=== PATIENT | female | born 1990 | race Caucasian/White ===

== ENCOUNTER 2021-03-15 10:46 | Emergency (ER) | payer OTHER ==
[2021-03-15 11:09] VITALS: BP 110/67; PULSE 76; RESP 18; TEMP 97.7
[2021-03-15 15:08] LABS: Appearance,Urine Clear (Clear); Bilirubin,Urine Negative (Negative); Blood,Urine Negative (Negative); Color,Urine Yellow; Glucose,Urine (UA) Negative (Negative); Ketones,Urine 1+ (Negative); Leukocyte Esterase,Urine Negative (Negative); Nitrite,Urine Negative (Negative); Protein,Urine Negative (Negative); Specific Gravity,Urine 1.018 (1.001-1.035); Urobilinogen,Urine <2.0 mg/dL (<2.0)
--- NOTE | 2021-03-15 15:19 | US ---
EXAMINATION TYPE: Transabdominal DATE OF EXAM: 03/15/2021 2:56 PM COMPARISON: NONE CLINICAL HISTORY: 10wks preg, cramping/spotting. cramping for 1 day with 1 episode of pink spotting t his am, . Positive beta-hCG test. EXAM PERFORMED: OBTA EXAM MEASUREMENTS: GESTATIONAL AGE / DATING Physician Established: (10 weeks/4 days) EDC: 10/07/2021 Dates by LMP: LMP unknown Dates by First Scan: No previous this is first scan Dates by Current Scan for: (9 weeks/0 days) EDC: not viable MATERNAL ANATOMY Uterus: 9.5 x 8.3 x 7.9cm Right Ovary: not seen due to bowel gas and enlarging UT Left Ovary: not seen due to bowel gas and enlarging UT Post CDS / Adnexa: wnl Presence of free fluid: no Presence of corpus luteal cyst: not seen Presence of subchorionic bleed: no GESTATION / SURVEY CRL: 2.3cm (9 weeks/0 days) MSD: wnl Yolk Sac (normal less than 6mm): not seen Heart Rate: 0 bpm IUP: Demise Date of LMP: unknown Heterogeneous anteverted uterus. Confirmation of single intrauterine gestation as gestational sac an d pole seen. Yolk sac not identified. heart tones cannot be identified despite multiple a ttempts. No free fluid in pelvic cul-de-sac. Neither ovary seen. No adnexal masses noted on images saved. IMPRESSION: Findings consistent with intrauterine demise as detailed above.
--- NOTE | 2021-03-15 15:36 | ED ---
Abdominal Pain HPI - General Chief Complaint: Abdominal Pain Stated Complaint: 10 wks preg, bleeding Time Seen by Provider: 03/15/21 14:12 Source: patient, family, RN notes reviewed Mode of arrival: ambulatory Limitations: no limitations - History of Present Illness Initial Comments: Patient is a 31-year-old female presenting to the emergency Department with complaints of lower abdominal cramping that started last night. Patient is currently 10 weeks , . SHOP COOPER is Dr. Saleh. She has an appointment to see her next week. Patient states she started having some lower abdominal cramping with radiation into the back yesterday and throughout today. She does remember some abdominal cramping with her previous but it's not usuall y this intense. This morning she did have a little bit of spotting. This has not been continuous. She did have an ultrasound at about 6 weeks along which did show an IUP, too early for heartbeat at that time. Patient denies any fevers or chills, no nausea or vomiting, no diarrhea. She states she feels fairly well otherwise. She denies any dysuria. She's been having regular bowel movements. She has no further complaints. Her vital signs are stable. - Related Data Allergies Allergy/AdvReac Type Severity Reaction Status Date / Time No Known Allergies Allergy Verified 03/15/21 11:08 Review of Systems ROS Statement: Those systems with pertinent positive or pertinent negative responses have been documented in the HPI. ROS Other: All systems not noted in ROS Statement are negative. Past Medical History Past Medical History: No Reported History History of Any Multi-Drug Resistant Organisms: MRSA Past Surgical History: No Surgical Hx Reported Past Psychological History: No Psychological Hx Reported Smoking Status: Never smoker Past Alcohol Use History: None Reported Past Drug Use History: None Reported General Exam - General Exam Comments Initial Comments: GENERAL: Patient is well-developed and well-nourished. Patient is nontoxic and in no acute distress. HEAD: Atraumatic, normocephalic. EYES: Pupils equal round and reactive to light, extraocular movements intact, sclera anicteric, conjunctiva are normal. Eyelids were unremarkable. ENT: Moist mucous membranes. NECK: Normal range of motion, supple without lymphadenopathy or JVD. LUNGS: Unlabored respirations. Breath sounds clear to auscultation bilaterally and equal. No wheezes rales or rhonchi. HEART: Regular rate and rhythm without murmurs, rubs or gallops. ABDOMEN: Soft, nontender, normoactive bowel sounds. No guarding, no rebound. No masses appreciated. MUSCULOSKELETAL: Normal extremities with adequate strength and normal range of motion, no pitting or edema. No clubbing or cyanosis. NEUROLOGICAL: Patient is alert and oriented x 3. SKIN: Warm, Dry, normal turgor, no rashes or lesions noted. Limitations: no limitations Course Vital Signs 03/15/21 11:03 Temperature 97.7 F Pulse Rate 76 Respiratory 18 Rate Blood Pressure 110/67 O2 Sat by Pulse 100 Oximetry Medical Decision Making - Medical Decision Making Patient is a 31-year-old female, currently 10 weeks , presenting for lower abdominal cramping since yesterday as well as some spotting that started this morning. She is , SHOP COOPER is Dr. Saleh. Her vital signs are stable. I did recommend some blood work as well as hCG Quant however patient declined this. She simply wants an ultrasound. She states her blood type is A+. Ultrasound reveals confirmation of a single intrauterine gestation, with gestational sac and pole seen, he'll contact not identified, heart tones cannot be identified despite multiple times. Radiologist is stating findings are consistent with intrauterine demise. I discussed these findings with the patient. She needs to follow up with her SHOP COOPER. She is agreeable to this plan of care. Strict return parameters were discussed with her and she verbalized understanding. - Lab Data Lab Results 03/15/21 Range/Units 14:30 Urine Color Yellow Urine Appearance Clear (Clear) Urine pH 8.0 (5.0-8.0) Ur Specific [place] 1.018 (1.001-1.035) Urine Protein Negative (Negative) Urine Glucose (UA) Negative (Negative) Urine Ketones 1+ H (Negative) Urine Blood Negative (Negative) Urine Nitrite Negative (Negative) Urine Bilirubin Negative (Negative) Urine Urobilinogen <2.0 (<2.0) mg/dL Ur Leukocyte Esterase Negative (Negative) Disposition Clinical Impression: Abdominal cramping, demise Disposition: HOME SELF-CARE Condition: Stable Instructions (If sedation given, give patient instructions): Threatened Miscarriage (ED) Additional Instructions: Please return to the Emergency Department if symptoms worsen or any other concerns. Please follow-up with your SHOP COOPER as discussed. Is patient prescribed a controlled substance at d/c from ED?: No Referrals: None,Stated [Primary Care Provider] - 1-2 days Ángela Saleh DO [Doctor of Osteopathic Medicine] - 1-2 days Time of Disposition: 15:35
== END 2021-03-15 15:45 | disposition home or self-care (01) ==
LOC: EC 10:46
DX: O02.1 Missed abortion (principal); Z3A.09 9 weeks gestation of pregnancy
CPT/HCPCS: 76801; 81003; 99284

== ENCOUNTER 2021-03-23 11:53 | Day surgery (SDC) | payer OTHER ==
[2021-03-22 10:00] VITALS: BMI 19.0
--- NOTE | 2021-03-22 20:10 | P.HPOB ---
History of Present Illness H&P Date: 03/22/21 Chief Complaint: Missed This is a 31 y.o. female, 3, para 1 with last menstrual period of 01/02/2021 presents for suction dilatation and curettage due to missed . She was seen in the office on 03/16/2021 and was found to have a demise measuring approximately 9 weeks. She had a little pink spotting, but has passed no tissue. She was given option of awaiting spontaneous miscarriage versus dilatation and curettage. She wishes to proceed with surgery. Her blood type is A+. OB Hx: . 1 vaginal delivery at term. [employer] Hx: No history of STDs Social Hx: Single. Self employed. Review of Systems Constitutional: Denies chills, Denies fever Eyes: denies blurred vision, denies pain Ears, nose, mouth and throat: Denies headache, Denies sore throat Cardiovascular: Denies chest pain, Denies shortness of breath Respiratory: Denies cough Gastrointestinal: Reports abdominal pain (mild cramping) Genitourinary: Reports abnormal vaginal bleeding, Reports pelvic pain, Reports Musculoskeletal: Denies myalgias Integumentary: Denies pruritus, Denies rash Neurological: Denies numbness, Denies weakness Psychiatric: Denies anxiety, Denies depression Past Medical History Past Medical History: No Reported History History of Any Multi-Drug Resistant Organisms: MRSA Date of last positivie culture/infection: 05/07/2008 MDRO Source:: Inner left thigh Past Surgical History: No Surgical Hx Reported Additional Past Surgical History / Comment(s): [place] teeth extracted. Past Anesthesia/Blood Transfusion Reactions: No Reported Reaction Past Psychological History: No Psychological Hx Reported Smoking Status: Former smoker, Vaper Past Alcohol Use History: None Reported Additional Past Alcohol Use History / Comment(s): Quit smoking/vaping 3-4 months ago. Smoked for 10 yrs, 1/4 PPD. Past Drug Use History: None Reported - Past Family History Mother Family Medical History: No Reported History Medications and Allergies Home Medications Medication Instructions Recorded Confirmed Type Pnv No.95/Ferrous Fum/Folic AC 1 each PO DAILY 03/22/21 03/22/21 History [ Multivitamin Tablet] Allergies Allergy/AdvReac Type Severity Reaction Status Date / Time No Known Allergies Allergy Verified 03/22/21 09:50 Exam Osteopathic Statement: *. No significant issues noted on an osteopathic structural exam other than those noted in the History and Physical/Consult. Intake and Output 03/22/21 03/22/21 03/22/21 06:59 14:59 22:59 Other: Weight 53.524 kg HEENT: within normal limits Heart: regular rate and rhythm Lungs: clear to auscultation bilaterally Abdomen: soft non-tender Pelvic: uterus enlarged approximately 9 weeks, non-tender, no adnexal masses or tenderness. No vaginal bleeding. Extremities: neg. Mehul's Assessment and Plan (1) demise Status: Acute Code(s): XQJ4076 - SNOMED Code(s): 636933741 Plan: Proceed with suction dilatation and curettage. I have discussed the risks, benefits, and alternative therapies for the above- mentioned procedure and for both sedation/anesthesia as well as necessary blood products administration, if indicated, as they pertain to this patient. The patient has indicated her understanding and acceptance of the risks and procedures discussed.
[~2021-03-23 11:53] MED LIST: DEXAMETHASONE SOD PHOSPHATE 4 MG/ML 1 ML VIAL IV ONE; HYDROmorphone 0.5 MG/0.5 ML SYRINGE IVP PRN; LACTATED RINGERS 1,000 ML IV SCH; LIDOCAINE 1% (10MG/ML) FOR IV START INTRADERMA PRN; ONDANSETRON 4 MG/2 ML VIAL IVP ONE; Pre Op ABX Message 1 EACH MISC MISCELLANE ONE; SCOPOLAMINE 1.5MG/72HR PATCH TRANSDERM ONE
[2021-03-23 12:33] VITALS: RESP 16
[2021-03-23] MEDS ORDERED: MIDAZOLAM 2 MG/2 ML VIAL ONE (12:59)
[2021-03-23] MEDS ORDERED: fentaNYL (PF) 50 MCG/ML 2 ML AMP ONE (12:59)
[2021-03-23] MEDS ORDERED: PROPOFOL 10 MG/ML 20 ML VIAL IV ONE (12:59)
[2021-03-23] MEDS ORDERED: KETOROLAC 15 MG/ML 1 ML VIAL ONE (12:59)
[2021-03-23] MEDS ORDERED: LIDOCAINE 1% INJ 10MG/ML (20 ML MDV) ONE (12:59)
[2021-03-23] MEDS ORDERED: ACETAMINOPHEN IV (For NPO) 1,000 MG/100 ML VIAL ONE (12:59)
--- NOTE | 2021-03-23 13:34 | P.OP ---
Date of Procedure: 03/23/21 Preoperative Diagnosis: Missed Postoperative Diagnosis: Same Procedure(s) Performed: Suction dilation and curettage Anesthesia: other (LMA general) Surgeon: Ángela Saleh Estimated Blood Loss (ml): 100 Pathology: other (Products of conception) Condition: stable Disposition: same day Indications for Procedure: This is a 31 y.o. female, 3, para 1 with last menstrual period of 01/02/2021 presents for suction dilatation and curettage due to missed . She was seen in the office on 03/16/2021 and was found to have a demise measuring approximately 9 weeks. She had a little pink spotting, but has passed no tissue. She was given option of awaiting spontaneous miscarriage versus dilatation and curettage. She wishes to proceed with surgery. Her blood type is A+. Operative Findings: Uterus is sounded to 9 cm. A large amount of products of conception are obtained. No adnexal masses are palpated. Uterus is anteverted. Description of Procedure: The patient is taken to the operating room where she is placed in the dorsal lithotomy position. She is prepped and draped in the normal sterile fashion. Her bladder is drained with a catheter. Examination is performed under anesthesia. Uterus is found to be anteverted and slightly enlarged. No adnexal masses are palpated. A weighted speculum was placed in the patient's vagina and a right angle retractor was used to visualize the cervix. The anterior lip of the cervix is grasped with a single-toothed tenaculum. Next the uterus is sounded to 9 cm. Cervix is gently dilated with Villalba dilators until a 9 mm curved suction curet to be placed. Suction curetting is performed with a large amount of tissue and blood clot obtained. Next a medium-size sharp curetting was performed with no further tissue obtained. Suction curetting was formed one further time to remove any blood clots. Uterus did contract well and minimal bleeding was noted. Single-tooth tenaculum was removed and pressure was applied with a ring forcep. Once the ring forcep was removed no active bleeding was noted. All instrument removed from the vagina. All sponge counts are correct. The patient is then taken to recovery room in stable condition.
[2021-03-23 13:44] VITALS: TEMP 97
[2021-03-23] MEDS ORDERED: HYDROcodone/APAP 5-325MG 1 EACH TAB ONE (14:55)
[2021-03-23] MEDS ORDERED: HYDROcodone/APAP 5-325MG 1 EACH TAB PO ONE (14:57)
[2021-03-23 15:20] VITALS: BP 106/67; PULSE 71
== END 2021-03-23 15:51 | disposition home or self-care (01) ==
LOC: OR 11:53
PROVIDERS: ATTEND Obstetrics & Gynecology
DX: O02.1 Missed abortion (principal); Z87.891 Personal history of nicotine dependence
CPT/HCPCS: 86900; 86901; 88305; 86850; 59820; J2250; J1100; J2405; J2001; J3010; J0131; J1885; J2704

== ENCOUNTER 2022-10-06 14:33 | Emergency (ER) | payer OTHER ==
[2022-10-06 14:46] VITALS: TEMP 98.3
[2022-10-06 15:34] VITALS: RESP 16
[2022-10-06 15:51] LABS: Basophils % (A) 0 %; Eosinophils # (A) 0.2 k/uL (0-0.7); Eosinophils % (A) 2 %; HCT 40.9 % (34.0-46.0); HGB 13.5 gm/dL (11.4-16.0); Lymphocytes # (A) 2.4 k/uL (1.0-4.8); Lymphocytes % (A) 17 %; MCH 31.1 pg (25.0-35.0); MCV 94.2 fL (80.0-100.0); Mean Platelet Volume 11.5; Monocytes # (A) 0.6 k/uL (0-1.0); Monocytes % (A) 4 %; Neutrophils # (A) 10.3 k/uL (1.3-7.7); Neutrophils % (A) 75 %; Platelet Count 221 k/uL (150-450); RBC 4.35 m/uL (3.80-5.40); RDW 12.4 % (11.5-15.5); WBC 13.7 k/uL (3.8-10.6)
[2022-10-06 16:08] LABS: Appearance,Urine Cloudy (Clear); Bilirubin,Urine Negative (Negative); Blood,Urine Negative (Negative); Color,Urine Yellow; Glucose,Urine (UA) Negative (Negative); Ketones,Urine 1+ (Negative); Leukocyte Esterase,Urine Trace (Negative); Mucus,Urine Few /hpf; Nitrite,Urine Negative (Negative); PH, Urine 5.5 (5.0-8.0); Protein,Urine Negative (Negative); RBC,Urine 1 /hpf (0-5); Specific Gravity,Urine 1.021 (1.001-1.035); Squamous Epithelial Cell,Urine 8 /hpf (0-4); Urobilinogen,Urine <2.0 mg/dL (<2.0); WBC,Urine 3 /hpf (0-5)
[2022-10-06 16:16] LABS: ALT 20 U/L (4-34); AST 37 U/L (14-36); African American GFR (CKD) >90 (>60 ml/min/1.73 sqM); Albumin 4.9 g/dL (3.5-5.0); Alkaline Phosphatase 46 U/L (38-126); Anion Gap 9 mmol/L; Blood Urea Nitrogen 9 mg/dL (7-17); Calcium 9.4 mg/dL (8.4-10.2); Carbon Dioxide 22 mmol/L (22-30); Chloride 107 mmol/L (98-107); Glucose 89 mg/dL (74-99); Non-African American GFR(CKD) >90 (>60 ml/min/1.73 sqM); Potassium 5.1 mmol/L (3.5-5.1); Sodium 138 mmol/L (137-145); Total Bilirubin 0.9 mg/dL (0.2-1.3); Total Protein 8.2 g/dL (6.3-8.2)
--- NOTE | 2022-10-06 16:17 | ED ---
General Adult HPI - General Chief complaint: Abdominal Pain Stated complaint: 6wks PREG-CRAMPING Time Seen by Provider: 10/06/22 14:55 Source: patient, RN notes reviewed Mode of arrival: ambulatory Limitations: no limitations - History of Present Illness Initial comments: 32-year-old female who is presents to the emergency department with a chief complaint of vaginal cramping. She is also complaining of accompanying symptoms of right shoulder pain. She reports that she is approximately 6 weeks . Last menstrual date is 09/24/2022. Her QUALITY IMPROVEMENT SPECIALIST is Dr. Saleh. She denies any dizziness, lightheadedness, shortness of breath, dysuria, flank pain. She denies any vaginal bleeding at this time. She has not taken anything for his symptoms. - Related Data Home Medications Medication Instructions Recorded Confirmed Pnv No.95/Ferrous Fum/Folic AC 1 each PO DAILY 03/22/21 03/23/21 [ Multivitamin Tablet] Previous Rx's Medication Instructions Recorded Multivitamin/Iron/Folic Acid 1 each PO ONCE #30 tablet 10/06/22 [Centrum Women Tablet] Allergies Allergy/AdvReac Type Severity Reaction Status Date / Time sulfamethoxazole Allergy Abdominal Verified 10/06/22 14:47 [From Bactrim] Pain trimethoprim [From Bactrim] Allergy Abdominal Verified 10/06/22 14:47 Pain Review of Systems ROS Statement: Those systems with pertinent positive or pertinent negative responses have been documented in the HPI. ROS Other: All systems not noted in ROS Statement are negative. Past Medical History Past Medical History: No Reported History History of Any Multi-Drug Resistant Organisms: MRSA Date of last positivie culture/infection: 05/07/2008 MDRO Source:: Inner left thigh Past Surgical History: No Surgical Hx Reported Additional Past Surgical History / Comment(s): [place] teeth extracted., D&C Past Anesthesia/Blood Transfusion Reactions: No Reported Reaction Past Psychological History: No Psychological Hx Reported Smoking Status: Former smoker, Vaper Past Alcohol Use History: None Reported Past Drug Use History: None Reported - Past Family History Mother Family Medical History: No Reported History General Exam - General Exam Comments Initial Comments: General: Alert, in no acute distress Head: atraumatic normocephalic. Eyes PERRL, EOMI intact, mucous membranes moist Respiratory: Lungs clear to auscultation bilaterally Cardiovascular: Heart rate regular and rhythm Abdominal: Soft without guarding or rebound Extremities: Normal inspection with full range of motion and normal capillary refill Neuroogic: alert and oriented 3, CN II-XII intact, able to ambulate with steady gait Skin: warm dry and intact with normal color Limitations: no limitations Course Vital Signs 10/06/22 10/06/22 10/06/22 14:43 15:32 17:14 Temperature 98.3 F Pulse Rate 111 H 68 80 Respiratory 20 16 16 Rate Blood Pressure 111/66 110/57 102/59 O2 Sat by Pulse 99 100 99 Oximetry Medical Decision Making - Medical Decision Making Was pt. sent in by a medical professional or institution (, PA, LEGAL BILLING COORDINATOR, urgent care, hospital, or fpc...) When possible be specific @ -[No] Did you speak to anyone other than the patient for history (EMS, parent, family, police, friend...)? What history was obtained from this source @ -[No] Did you review nursing and triage notes (agree or disagree)? Why? @ -[I reviewed and agree with nursing and triage notes] Were old charts reviewed (outside hosp., previous admission, EMS record, old E KG, old radiological studies, urgent care reports/EKG's, fpc records)? Report findings @ -[No old charts were reviewed] Differential Diagnosis (chest pain, altered mental status, abdominal pain women, abdominal pain men, vaginal bleeding, weakness, fever, dyspnea, syncope, headache, dizziness, GI bleed, back pain, seizure, CVA, palpatations, mental h ealth, musculoskeletal)? @ -[not applicable] EKG interpreted by me (3pts min.). @ -[As above] X-rays interpreted by me (1pt min.). @ -[None done] CT interpreted by me (1pt min.). @ -[None done] U/S interpreted by me (1pt. min.). @ -Pelvic ultrasound reveals 1 single intrauterine What testing was considered but not performed or refused? (CT, X-rays, U/S, labs)? Why? @ -[None] What meds were considered but not given or refused? Why? @ -[None] Did you discuss the management of the patient with other professionals (mason alvarado iweston Meyer, PA, LEGAL BILLING COORDINATOR, lab, RT, psych nurse, social worker psychiatric, lace paper machine operator, teacher, small business banking officer, bilingual case manager)? Give summary @ -[No] Was smoking cessation discussed for >3mins.? @ -[No] Was critical care preformed (if so, how long)? @ -[No] Were there social determinants of health that impacted care today? How? (Homelessness, low income, unemployed, alcoholism, drug addiction, transpo rtation, low edu. Level, literacy, decrease access to med. care, assisted, rehab)? @ -[No] Was there de-escalation of care discussed even if they declined (Discuss DNR or withdrawal of care, Hospice)? DNR status @ -[No] What co-morbidities impacted this encounter? (DM, HTN, Smoking, COPD, CAD, Cancer, CVA, ARF, Chemo, Hep., AIDS, mental health diagnosis, sleep apnea, morbid obesity)? @ -[None] Was patient admitted / discharged? Hospital course, mention meds given and route, prescriptions, significant lab abnormalities, going to OR and other pertinent info. @ -Discharged. This is a 32-year-old female who presents to the emergency department with problem. Patient had a thorough history and physical exam performed on the ED. Physical exam is essentially unremarkable. Heart rate regular rate and rhythm, lungs clear to auscultation bilaterally, abdomen soft and nontender. Patient lab work and imaging performed which were essentially unremarkable. Beta-hCG level 9000. I discussed results in detail with the patient verbalized understanding and all questions were addressed. Return precautions were discussed at length. Patient discharged in stable condition. Undiagnosed new problem with uncertain prognosis? @ -[No] Drug Therapy requiring intensive monitoring for toxicity (Heparin, Nitro, Insulin, Cardizem)? @ -[No] Were any procedures done? @ -[No] Diagnosis/symptom? @ -normal Acute, or Chronic, or Acute on Chronic? @ -Acute Uncomplicated (without systemic symptoms) or Complicated (systemic symptoms)? @ -Uncomplicated Side effects of treatment? @ -[No] Exacerbation, Progression, or Severe Exacerbation? @ -[No] Poses a threat to life or bodily function? How? (Chest pain, [place], [place], pneumonia, PE, COPD, DKA, ARF, appy, cholecystitis, CVA, Diverticulitis, Homicidal, Suicidal, threat to staff... and all critical care pts) @ Low likelihood - Lab Data Result diagrams: 10/06/22 15:13 10/06/22 15:13 Lab Results 10/06/22 10/06/22 10/06/22 Range/Units 15:13 15:13 15:13 WBC 13.7 H (3.8-10.6) k/uL RBC 4.35 (3.80-5.40) m/uL Hgb 13.5 (11.4-16.0) gm/dL Hct 40.9 (34.0-46.0) % MCV 94.2 (80.0-100.0) fL MCH 31.1 (25.0-35.0) pg MCHC 33.0 (31.0-37.0) g/dL RDW 12.4 (11.5-15.5) % Plt Count 221 (150-450) k/uL MPV 11.5 Neutrophils % 75 % Lymphocytes % 17 % Monocytes % 4 % Eosinophils % 2 % Basophils % 0 % Neutrophils # 10.3 H (1.3-7.7) k/uL Lymphocytes # 2.4 (1.0-4.8) k/uL Monocytes # 0.6 (0-1.0) k/uL Eosinophils # 0.2 (0-0.7) k/uL Basophils # 0.0 (0-0.2) k/uL Sodium 138 (137-145) mmol/L Potassium 5.1 (3.5-5.1) mmol/L Chloride 107 (98-107) mmol/L Carbon Dioxide 22 (22-30) mmol/L Anion Gap 9 mmol/L BUN 9 (7-17) mg/dL Creatinine 0.44 L (0.52-1.04) mg/dL Est GFR (CKD-EPI)AfAm >90 (>60 ml/min/1.73 sqM) Est GFR (CKD-EPI)NonAf >90 (>60 ml/min/1.73 sqM) Glucose 89 (74-99) mg/dL Calcium 9.4 (8.4-10.2) mg/dL Total Bilirubin 0.9 (0.2-1.3) mg/dL AST 37 H (14-36) U/L ALT 20 (4-34) U/L Alkaline Phosphatase 46 (38-126) U/L Total Protein 8.2 (6.3-8.2) g/dL Albumin 4.9 (3.5-5.0) g/dL HCG, Quant 9697.4 mIU/mL Urine Color Yellow Urine Appearance Cloudy H (Clear) Urine pH 5.5 (5.0-8.0) Ur Specific [place] 1.021 (1.001-1.035) Urine Protein Negative (Negative) Urine Glucose (UA) Negative (Negative) Urine Ketones 1+ H (Negative) Urine Blood Negative (Negative) Urine Nitrite Negative (Negative) Urine Bilirubin Negative (Negative) Urine Urobilinogen <2.0 (<2.0) mg/dL Ur Leukocyte Esterase Trace H (Negative) Urine RBC 1 (0-5) /hpf Urine WBC 3 (0-5) /hpf Ur Squamous Epith Cells 8 H (0-4) /hpf Urine Mucus Few H (None) /hpf Disposition Clinical Impression: Disposition: HOME SELF-CARE Condition: Stable Additional Instructions: These return to the nearest emergency department symptoms worsen or persist Prescriptions: Multivitamin/Iron/Folic Acid [Centrum Women Tablet] 1 each PO ONCE #30 tablet Is patient prescribed a controlled substance at d/c from ED?: No Referrals: Trinidad Norris MD [Primary Care Provider] - 1-2 days Time of Disposition: 17:04
[2022-10-06 16:31] LABS: HCG,Quantitative Serum 9697.4 mIU/mL
--- NOTE | 2022-10-06 16:47 | US ---
EXAMINATION TYPE: Transabdominal DATE OF EXAM: 10/06/2022 4:26 PM COMPARISON: NONE CLINICAL INDICATION: Female, 32 years old with history of pelvic pain; Light cramping intermittently x 2 weeks. No bleeding. Hx D and C. . EXAM PERFORMED: Transvaginal (TV) and Transabdominal (TA) EXAM MEASUREMENTS: GESTATIONAL AGE / DATING Physician Established: Not yet established Dates by LMP: (6 weeks/0 days) EDC: 06/01/2023 Dates by First Scan: This is first scan Dates by Current Scan for: (6 weeks/0 days) EDC: 06/01/2023 MATERNAL ANATOMY Uterus: 8.9 x 5.8 x 4.9 cm Right Ovary: 3.9 x 2.0 x 2.2 cm Left Ovary: 2.8 x 2.3 x 1.7 cm Post CDS / Adnexa: Prominent enlarged vessels seen in bilateral adnexa. Vessels on the left appear larger: 1.3 cm. Presence of free fluid: No Presence of corpus luteal cyst: Possible within right ovary: area of mixed echogenicity seen within t he right ovary: 2.0 x 1.6 x 1.8 cm. Presence of subchorionic bleed: No GESTATION / SURVEY CRL: 0.33 cm (6 weeks/0 days) MSD: 0.95 cm (Out of range) Yolk Sac (normal less than 6mm): 3.4 mm Heart Rate: 103 bpm Rhythm: Normal IUP: Viable IUP Date of LMP: 08/25/2022 Beta HcG (if available): 9697.4 mIU/mL Single live intrauterine gestation. IMPRESSION: Single live intrauterine gestation with estimated gestational age of 6 weeks 0 days and estimated due date of 06/01/2023.
[2022-10-06 17:18] VITALS: BP 102/59; PULSE 80
== END 2022-10-06 17:18 | disposition home or self-care (01) ==
LOC: EC 14:33
DX: O26.891 Other specified pregnancy related conditions, first trimester (principal); F17.290 Nicotine dependence, other tobacco product, uncomplicated; Z88.1 Allergy status to other antibiotic agents; Z88.2 Allergy status to sulfonamides; Z3A.01 Less than 8 weeks gestation of pregnancy
CPT/HCPCS: 36415; 76801; 76817; 80053; 81001; 84702; 85025; 99284

== ENCOUNTER → 2022-11-13 | Outpatient (CLI) | payer OTHER ==
--- NOTE | 2022-11-13 13:29 | US ---
EXAMINATION TYPE: Transabdominal DATE OF EXAM: 11/13/2022 1:14 PM COMPARISON: US CLINICAL INDICATION: Female, 32 years old with history of Z36.89 CONFIRM GESTATIONAL AGE AND VIABILIT Y; Confirm Dates EXAM PERFORMED: Transabdominal (TA) EXAM MEASUREMENTS: GESTATIONAL AGE / DATING Physician Established: (11 weeks/3 days) EDC: 06/01/2023 Dates by LMP: (11 weeks/3 days) EDC: 06/01/2023 Dates by First Scan: (11 weeks/3 days) EDC: 06/01/2023 Dates by Current Scan for: (11 weeks/5 days) EDC: 05/30/2023 MATERNAL ANATOMY Uterus: 12.0 x 7.0 x 7.7 cm Right Ovary: 2.5 x 2.4 x 1.7 cm Left Ovary: 3.3 x 2.2 x 1.8 cm Post CDS / Adnexa: wnl Presence of free fluid: No Presence of subchorionic bleed: No GESTATION / SURVEY CRL: 4.9 cm (11 weeks/5 days) MSD: wnl Heart Rate: 169 bpm Rhythm: Normal IUP: Viable IUP IMPRESSION: Single, viable IUP/ No abnormality visualized at this time
== END | disposition home or self-care (01) ==
LOC: RADUSWWP 12:54
PROVIDERS: ATTEND Obstetrics & Gynecology
DX: Z36.89 Encounter for other specified antenatal screening (principal)
CPT/HCPCS: 76801

== ENCOUNTER 2022-11-18 20:40 | Emergency (ER) | payer OTHER ==
[2022-11-18 22:58] LABS: Basophils # (A) 0.1 k/uL (0-0.2); Basophils % (A) 0 %; Eosinophils # (A) 0.2 k/uL (0-0.7); Eosinophils % (A) 1 %; HCT 37.7 % (34.0-46.0); HGB 12.7 gm/dL (11.4-16.0); Lymphocytes # (A) 2.7 k/uL (1.0-4.8); Lymphocytes % (A) 17 %; MCH 31.4 pg (25.0-35.0); MCHC 33.6 g/dL (31.0-37.0); MCV 93.4 fL (80.0-100.0); Mean Platelet Volume 10.2; Monocytes # (A) 0.8 k/uL (0-1.0); Monocytes % (A) 5 %; Neutrophils # (A) 12.1 k/uL (1.3-7.7); Neutrophils % (A) 76 %; Platelet Count 222 k/uL (150-450); RBC 4.04 m/uL (3.80-5.40); RDW 12.4 % (11.5-15.5)
[2022-11-18 23:04] LABS: ALT 17 U/L (4-34); AST 20 U/L (14-36); African American GFR (CKD) >90 (>60 ml/min/1.73 sqM); Albumin 4.1 g/dL (3.5-5.0); Alkaline Phosphatase 46 U/L (38-126); Anion Gap 11 mmol/L; Blood Urea Nitrogen 10 mg/dL (7-17); Calcium 9.3 mg/dL (8.4-10.2); Carbon Dioxide 25 mmol/L (22-30); Chloride 101 mmol/L (98-107); Glucose 93 mg/dL (74-99); Non-African American GFR(CKD) >90 (>60 ml/min/1.73 sqM); Potassium 3.9 mmol/L (3.5-5.1); Sodium 137 mmol/L (137-145); Total Bilirubin 0.2 mg/dL (0.2-1.3); Total Protein 6.9 g/dL (6.3-8.2)
[2022-11-18 23:09] LABS: Amorphous Sediment,Urine Occasional /hpf; Appearance,Urine Clear (Clear); Bilirubin,Urine Negative (Negative); Blood,Urine Negative (Negative); Color,Urine Light Yellow; Glucose,Urine (UA) Negative (Negative); Hyaline Casts,Urine 1 /lpf (0-2); Ketones,Urine Negative (Negative); Leukocyte Esterase,Urine Moderate (Negative); Mucus,Urine Rare /hpf; Nitrite,Urine Negative (Negative); PH, Urine 6.5 (5.0-8.0); Protein,Urine Negative (Negative); RBC,Urine 1 /hpf (0-5); Specific Gravity,Urine 1.014 (1.001-1.035); Squamous Epithelial Cell,Urine 3 /hpf (0-4); Urobilinogen,Urine <2.0 mg/dL (<2.0); WBC,Urine 4 /hpf (0-5)
--- NOTE | 2022-11-18 23:59 | US ---
EXAM: US First Trimester , Transabdominal CLINICAL HISTORY: US Reason: pain TECHNIQUE: Real-time transabdominal obstetrical ultrasound of the maternal pelvis and a first trimester with image documentation. COMPARISON: No relevant prior studies available. FINDINGS: Gestation: pole crown-rump length measures 5.8 cm consistent with 12 weeks 3 days gestation. heart rate 166 bpm. Estimated date of delivery: The estimated date delivery is May 30, 2023. Placenta/amniotic fluid: There is a small subchorionic hemorrhage measuring 1.3 x 0.8 x 0.6 cm. Uterus/cervix: The uterus measures 10 x 8.1 x 8.9 cm, 381 mL. No myometrial mass. Ovaries: The right ovary measures 2.7 x 1.8 x 1.5 cm. The left ovary measures 2.7 x 1.9 x 1.8 cm. No mass. Free fluid: No free fluid. IMPRESSION: Single, live intrauterine with size consistent with 12 weeks 3 days gestation. The estimated date of delivery is May 30, 2023. There is a small subchorionic hemorrhage measuring up to 13 mm.
--- NOTE | 2022-11-19 00:13 | ED ---
Female Urogenital HPI - General Chief complaint: OB/Uterine Contractions Stated complaint: Cramps, 12 weeks Time Seen by Provider: 11/18/22 20:50 Source: patient Mode of arrival: ambulatory Limitations: no limitations - History of Present Illness Initial comments: 32-year-old female who is with one spontaneous miscarriage last year who presents to the emergency department reporting vaginal pain and some discharge. States she is approximately 12 weeks . She follows with Dr. Saleh. Recently had an ultrasound and office appointment with her PUSH BUTTON SWITCH ASSEMBLER on Sunday. Ultrasound demonstrated an intrauterine with a heartbeat. As of earlier this afternoon the patient began having some lower abdominal cramping with some yellowish discharge. Denies any vaginal bleeding. Denies itching or odor. No concern for sexually transmitted infections. Did not take any medications for the pain. Denies dysuria, hematuria or difficulty voiding. No changes in her bowel habits. No fevers. No other alleviating, precipitating or modifying factors - Related Data Home Medications Medication Instructions Recorded Confirmed Pnv No.95/Ferrous Fum/Folic AC 1 each PO DAILY 03/22/21 03/23/21 [ Multivitamin Tablet] Previous Rx's Medication Instructions Recorded Multivitamin/Iron/Folic Acid 1 each PO ONCE #30 tablet 10/06/22 [Centrum Women Tablet] Allergies Allergy/AdvReac Type Severity Reaction Status Date / Time sulfamethoxazole Allergy Abdominal Verified 11/18/22 20:51 [From Bactrim] Pain trimethoprim [From Bactrim] Allergy Abdominal Verified 11/18/22 20:51 Pain Review of Systems ROS Statement: Those systems with pertinent positive or pertinent negative responses have been documented in the HPI. ROS Other: All systems not noted in ROS Statement are negative. Past Medical History Past Medical History: No Reported History History of Any Multi-Drug Resistant Organisms: MRSA Date of last positivie culture/infection: 05/07/2008 MDRO Source:: Inner left thigh Past Surgical History: No Surgical Hx Reported Additional Past Surgical History / Comment(s): [place] teeth extracted., D&C Past Anesthesia/Blood Transfusion Reactions: No Reported Reaction Past Psychological History: No Psychological Hx Reported Smoking Status: Former smoker, Vaper Past Alcohol Use History: None Reported Past Drug Use History: None Reported - Past Family History Mother Family Medical History: No Reported History General Exam Limitations: no limitations General appearance: alert, in no apparent distress Head exam: Present: atraumatic, normocephalic, normal inspection Eye exam: Present: normal appearance, PERRL, EOMI. Absent: scleral icterus, conjunctival injection, periorbital swelling ENT exam: Present: normal exam, mucous membranes moist Neck exam: Present: normal inspection. Absent: tenderness, meningismus, lymp hadenopathy Respiratory exam: Present: normal lung sounds bilaterally. Absent: respiratory distress, wheezes, rales, rhonchi, stridor Cardiovascular Exam: Present: regular rate, normal rhythm, normal heart sounds. Absent: systolic murmur, diastolic murmur, rubs, gallop, clicks GI/Abdominal exam: Present: soft, normal bowel sounds. Absent: distended, tenderness, guarding, rebound, rigid Extremities exam: Present: normal inspection, full ROM, normal capillary refill. Absent: tenderness, pedal edema, joint swelling, calf tenderness Back exam: Present: normal inspection Neurological exam: Present: alert, oriented X3, CN II-XII intact Psychiatric exam: Present: normal affect, normal mood Skin exam: Present: warm, dry, intact, normal color. Absent: rash Course Vital Signs 11/18/22 11/19/22 20:48 00:19 Temperature 99.4 F 99.5 F Pulse Rate 88 74 Respiratory 18 16 Rate Blood Pressure 122/76 114/72 O2 Sat by Pulse 99 100 Oximetry Medical Decision Making - Medical Decision Making Was pt. sent in by a medical professional or institution (, PA, FRUIT HARVEST MACHINE OPERATOR, urgent care, hospital, or correction...) When possible be specific @ -No Did you speak to anyone other than the patient for history (EMS, parent, family, police, friend...)? What history was obtained from this source @ -No Did you review nursing and triage notes (agree or disagree)? Why? @ -I reviewed and agree with nursing and triage notes Were old charts reviewed (outside hosp., previous admission, EMS record, old EKG, old radiological studies, urgent care reports/EKG's, correction records)? Report findings @ -No old charts were reviewed Differential Diagnosis (chest pain, altered mental status, abdominal pain women, abdominal pain men, vaginal bleeding, weakness, fever, dyspnea, syncope, headache, dizziness, GI bleed, back pain, seizure, CVA, palpatations, mental health, musculoskeletal)? @ -threatened miscarriage, placental abruption, subchorionic hemorrhage EKG interpreted by me (3pts min.). @ -Not done X-rays interpreted by me (1pt min.). @ -None done CT interpreted by me (1pt min.). @ -None done U/S interpreted by me (1pt. min.). @ -yes, iup at 12 weeks What testing was considered but not performed or refused? (CT, X-rays, U/S, labs)? Why? @ -None What meds were considered but not given or refused? Why? @ -None Did you discuss the management of the patient with other professionals (professionals i.e. , PA, FRUIT HARVEST MACHINE OPERATOR, lab, RT, psych nurse, dialysis social worker, senior nuclear medicine technologist, teacher, major gifts officer, case resolution specialist)? Give summary @ -No Was smoking cessation discussed for >3mins.? @ -No Was critical care preformed (if so, how long)? @ -No Were there social determinants of health that impacted care today? How? (Homelessness, low income, unemployed, alcoholism, drug addiction, transportation, low edu. Level, literacy, decrease access to med. care, [place] [facility], rehab)? @ -No Was there de-escalation of care discussed even if they declined (Discuss DNR or withdrawal of care, Hospice)? DNR status @ -No What co-morbidities impacted this encounter? (DM, HTN, Smoking, COPD, CAD, Cancer, CVA, ARF, Chemo, Hep., AIDS, mental health diagnosis, sleep apnea, morbid obesity)? @ -None Was patient admitted / discharged? Hospital course, mention meds given and route, prescriptions, significant lab abnormalities, going to OR and other pertinent info. @ -Upon arrival patient was placed into room 12. History and physical exam was performed. IV access was established laboratory studies were conducted. White count is 16. Urinalysis does not demonstrate any bacteria. Ultrasound does demonstrate an intrauterine dating 12 weeks 3 days. There is a small subchorionic hemorrhage. Heart rate of 166 for the fetus. These results are discussed with the patient. Did offer a pelvic exam however patient refused. Denies concern for sexually transmitted infections, yeast or BV. Patient be discharged at this time and instructed to call her PUSH BUT[employer] SWITCH ASSEMBLER to notify them that she had a completely emergency department. May have some bleeding due to the subchorionic hemorrhage. Needs to return to the emergency department for any new or worsening symptoms. Patient was agreeable to this was discharged in stable condition Undiagnosed new problem with uncertain prognosis? @ -No Drug Therapy requiring intensive monitoring for toxicity (Heparin, Nitro, Insulin, Cardizem)? @ -No Were any procedures done? @ -No Diagnosis/symptom? @ -acute vaginal discharge, first trimester , subchornionic hemorhage Acute, or Chronic, or Acute on Chronic? @ -acute Uncomplicated (without systemic symptoms) or Complicated (systemic symptoms)? @ -complicated Side effects of treatment? @ -No Exacerbation, Progression, or Severe Exacerbation? @ -No Poses a threat to life or bodily function? How? (Chest pain, [place], [place], pneumonia, PE, COPD, DKA, ARF, appy, cholecystitis, CVA, Diverticulitis, Homicidal, Suic idal, threat to staff... and all critical care pts) @ -No - Lab Data Result diagrams: 11/18/22 22:26 11/18/22 22:26 Lab Results 11/18/22 11/18/22 11/18/22 Range/Units 22:26 22:26 22:31 WBC 16.0 H (3.8-10.6) k/uL RBC 4.04 (3.80-5.40) m/uL Hgb 12.7 (11.4-16.0) gm/dL Hct 37.7 (34.0-46.0) % MCV 93.4 (80.0-100.0) fL MCH 31.4 (25.0-35.0) pg MCHC 33.6 (31.0-37.0) g/dL RDW 12.4 (11.5-15.5) % Plt Count 222 (150-450) k/uL MPV 10.2 Neutrophils % 76 % Lymphocytes % 17 % Monocytes % 5 % Eosinophils % 1 % Basophils % 0 % Neutrophils # 12.1 H (1.3-7.7) k/uL Lymphocytes # 2.7 (1.0-4.8) k/uL Monocytes # 0.8 (0-1.0) k/uL Eosinophils # 0.2 (0-0.7) k/uL Basophils # 0.1 (0-0.2) k/uL Sodium 137 (137-145) mmol/L Potassium 3.9 (3.5-5.1) mmol/L Chloride 101 (98-107) mmol/L Carbon Dioxide 25 (22-30) mmol/L Anion Gap 11 mmol/L BUN 10 (7-17) mg/dL Creatinine 0.40 L (0.52-1.04) mg/dL Est GFR (CKD-EPI)AfAm >90 (>60 ml/min/1.73 sqM) Est GFR (CKD-EPI)NonAf >90 (>60 ml/min/1.73 sqM) Glucose 93 (74-99) mg/dL Calcium 9.3 (8.4-10.2) mg/dL Total Bilirubin 0.2 (0.2-1.3) mg/dL AST 20 (14-36) U/L ALT 17 (4-34) U/L Alkaline Phosphatase 46 (38-126) U/L Total Protein 6.9 (6.3-8.2) g/dL Albumin 4.1 (3.5-5.0) g/dL Urine Color Light Yellow Urine Appearance Clear (Clear) Urine pH 6.5 (5.0-8.0) Ur Specific [place] 1.014 (1.001-1.035) Urine Protein Negative (Negative) Urine Glucose (UA) Negative (Negative) Urine Ketones Negative (Negative) Urine Blood Negative (Negative) Urine Nitrite Negative (Negative) Urine Bilirubin Negative (Negative) Urine Urobilinogen <2.0 (<2.0) mg/dL Ur Leukocyte Esterase Moderate H (Negative) Urine RBC 1 (0-5) /hpf Urine WBC 4 (0-5) /hpf Ur Squamous Epith Cells 3 (0-4) /hpf Amorphous Sediment Occasional H (None) /hpf Hyaline Casts 1 (0-2) /lpf Urine Mucus Rare H (None) /hpf Disposition Clinical Impression: First trimester , Vaginal discharge, Subchorionic hemorrhage Disposition: HOME SELF-CARE Condition: Stable Instructions (If sedation given, give patient instructions): Subchorionic Hemorrhage (ED) Additional Instructions: Please call your PUSH BUTTON SWITCH ASSEMBLER to let them know that you were in the emergency department. They will have to do more frequent ultrasounds for your diagnosis of subchorionic hemorrhage. Return for any new or worsening symptoms Is patient prescribed a controlled substance at d/c from ED?: No Referrals: Trinidad Norris MD [Primary Care Provider] - 1-2 days Ángela Saleh DO [Doctor of Osteopathic Medicine] - 1-2 days Time of Disposition: 00:11
[2022-11-19 00:21] VITALS: BP 114/72; PULSE 74; RESP 16; TEMP 99.5
== END 2022-11-19 00:22 | disposition home or self-care (01) ==
LOC: EC 20:40
DX: O20.8 Other hemorrhage in early pregnancy (principal); O99.331 Smoking (tobacco) complicating pregnancy, first trimester; F17.290 Nicotine dependence, other tobacco product, uncomplicated; Z88.2 Allergy status to sulfonamides; Z3A.12 12 weeks gestation of pregnancy
CPT/HCPCS: 36415; 76801; 80053; 81001; 85025; 99284

== ENCOUNTER 2023-03-07 18:00 | Outpatient (CLI) | payer OTHER ==
[2023-03-07 18:46] LABS: Appearance,Urine Clear (Clear); Bilirubin,Urine Negative (Negative); Blood,Urine Trace (Negative); Color,Urine Light Yellow; Glucose,Urine (UA) Negative (Negative); Ketones,Urine Negative (Negative); Leukocyte Esterase,Urine Small (Negative); Mucus,Urine Rare /hpf; Nitrite,Urine Negative (Negative); PH, Urine 5.5 (5.0-8.0); Protein,Urine Negative (Negative); RBC,Urine 10 /hpf (0-5); Specific Gravity,Urine 1.021 (1.001-1.035); Squamous Epithelial Cell,Urine 5 /hpf (0-4); Urobilinogen,Urine <2.0 mg/dL (<2.0); WBC,Urine 6 /hpf (0-5)
[2023-03-07 19:26] VITALS: BP 119/64; PULSE 86; RESP 18; TEMP 98
--- NOTE | 2023-03-08 06:32 | P.MSEPDOC ---
Presenting Problems - Arrival Data Date of Arrival on Unit: 03/07/23 Time of Arrival on Unit: 18:00 Mode of Transport: Ambulatory - Complaint OB-Reason for Admission/Chief Complaint: Pain Comment: Right lower back pain Medical History - Information : 3 Para: 1 Term: 1 : 0 Abortions: Spontaneous or Elective: 0 Number of Living Children: 1 - Gestational Age Gestational Age by ANGELINA (wks/days): 28 Weeks and 0 Days Review of Systems - Review of Systems Constitutional: No problems Breast: No problems ENT: No problems Cardiovascular: No problems Respiratory: No problems Gastrointestinal: No problems Genitourinary: Urgency, Increased frequency Musculoskeletal: No problems Neurological: No problems Skin: No problems Vital Signs - Temperature Temperature: 98.0 F Temperature Source: Oral - Pulse Right Sitting Brachial Pulse Rate: 86 Pulse Assessment Method: Automatic Cuff - Respirations Respiratory Rate: 18 Oxygen Delivery Method: Room Air O2 Sat by Pulse Oximetry: 99 - Blood Pressure Right Arm Sitting Blood Pressure: 119/64 Blood Pressure Mean: 82 Blood Pressure Source: Automatic Cuff Medical Screen Scoring - Assessment - Baby A Baseline FHR: 150 Heart Rate - NICHD Category: Category I (Normal) NST: Reactive Physician Notification - Physician Notified Physician Notified Date: 03/07/23 Physician Notified Time: 19:07 Physician: Ephraim Hanson Order Received: Yes (dc home. culture urine.) Maternal Triage Index - Maternal Triage Index Presenting for scheduled procedure w/no complaint: No - Stat/Priority 1 Stat Priority 1: No - Urgent/Priority 2 Urgent Priority 2: No - Prompt/Priority 3 Prompt Priority 3: No - Non-Urgent/Priority 4 Non-Urgent Priority 4: Yes Criteria Met for Priority 4: right lower back pain. reactive NST. reported NST and UA results. Urine sent for culture and pt to follow up in the office with dr Saleh tomorrow as scheduled. Disposition - Disposition OB Disposition: Discharge to home Discharge Date: 03/07/23 Discharge Time: 19:04 I agree with the RN Medical Screening Exam: Yes Case reviewed; plan agreed upon as documented in EMR&OBIX.: Yes Diagnosis: RELATED CONDITIONS, UNSPECIFIED, THIRD TRIMESTER
== END 2023-03-07 19:08 | disposition home or self-care (01) ==
LOC: FBPOP 18:00
PROVIDERS: ATTEND Obstetrics & Gynecology
DX: O26.893 Other specified pregnancy related conditions, third trimester (principal); M54.50 Low back pain, unspecified; Z3A.28 28 weeks gestation of pregnancy; Z88.2 Allergy status to sulfonamides; Z88.1 Allergy status to other antibiotic agents
CPT/HCPCS: 59025; 81001; G0463; 87086; 99213

== ENCOUNTER 2023-05-05 22:25 | Outpatient (CLI) | payer OTHER ==
[2023-05-05 23:43] VITALS: BP 125/79; PULSE 108; RESP 16; TEMP 98.1
--- NOTE | 2023-05-06 07:11 | P.MSEPDOC ---
Presenting Problems - Arrival Data Date of Arrival on Unit: 05/05/23 Time of Arrival on Unit: 22:25 Mode of Transport: Ambulatory - Complaint OB-Reason for Admission/Chief Complaint: Possible Onset of Labor Comment: Pt presents to triage with complaints of contractions approximately 10 minutes apart starting at 5pm today increased to 5 minues apart for the last 2 hours. Pt rating pain 5/10. Medical History - Information : 3 Para: 1 Term: 1 : 0 Abortions: Spontaneous or Elective: 1 Number of Living Children: 1 - Gestational Age Gestational Age by ANGELINA (wks/days): 36 Weeks and 1 Days Review of Systems - Review of Systems Constitutional: No problems Breast: No problems ENT: No problems Cardiovascular: No problems Respiratory: No problems Gastrointestinal: No problems Genitourinary: No problems Musculoskeletal: No problems Neurological: No problems Skin: No problems Vital Signs - Temperature Temperature: 98.1 F Temperature Source: Temporal Artery Scan - Pulse Pulse Oximetery Pulse Rate: 108 Pulse Assessment Method: Pulse Oximetry - Respirations Respiratory Rate: 16 Oxygen Delivery Method: Room Air O2 Sat by Pulse Oximetry: 98 - Blood Pressure Right Arm Blood Pressure: 125/79 Blood Pressure Mean: 94 Blood Pressure Source: Automatic Cuff Medical Screen Scoring - Cervical Exam Dilation (cm): 1 Effacement (%): 60 Station: -3 Membranes: Intact - Uterine Contractions Intensity: Absent - Assessment - Baby A Baseline FHR: 140 Heart Rate - NICHD Category: Category I (Normal) NST: Reactive Physician Notification - Physician Notified Physician Notified Date: 05/05/23 Physician Notified Time: 23:18 Physician: Ephraim Hanson New Order Received: Yes - Notification Comment Comment: Dr. Hanson called back, reported on maternal status and complaints of contractions, GA,G/P, VS, CAT 1 FHT, Reactive NST, absent contractions. Orders to discharge home. Maternal Triage Index - Maternal Triage Index Presenting for scheduled procedure w/no complaint: No - Stat/Priority 1 Stat Priority 1: No - Urgent/Priority 2 Urgent Priority 2: No - Prompt/Priority 3 Prompt Priority 3: No - Non-Urgent/Priority 4 Non-Urgent Priority 4: Yes Criteria Met for Priority 4: Pt presents to triage with complaints of contractions approximately 10 minutes apart starting at 5pm today increased to 5 minues apart for the last 2 hours. Pt rating pain 5/10. Disposition - Disposition OB Disposition: Discharge to home Discharge Date: 05/05/23 Discharge Time: 23:21 I agree with the RN Medical Screening Exam: Yes Case reviewed; plan agreed upon as documented in EMR&OBIX.: Yes Diagnosis: FALSE LABOR BEFORE 37 COMPLETED WEEKS OF GEST, THIRD TRI
== END 2023-05-05 23:21 | disposition home or self-care (01) ==
LOC: FBPOP 22:25
PROVIDERS: ATTEND Obstetrics & Gynecology
DX: O47.03 False labor before 37 completed weeks of gestation, third trimester (principal); Z3A.36 36 weeks gestation of pregnancy; Z88.2 Allergy status to sulfonamides; Z88.1 Allergy status to other antibiotic agents
CPT/HCPCS: 59025; G0463; 99213

== ENCOUNTER → 2023-05-13 | Outpatient (CLI) | payer OTHER ==
[2023-05-13 19:42] VITALS: BP 128/63; PULSE 91; TEMP 97.1
--- NOTE | 2023-05-17 09:21 | P.MSEPDOC ---
Presenting Problems - Arrival Data Date of Arrival on Unit: 05/13/23 Time of Arrival on Unit: 17:49 Mode of Transport: Ambulatory - Complaint OB-Reason for Admission/Chief Complaint: Possible Onset of Labor Comment: no cervical change per Cindy R RN after an hour Medical History - Information : 3 Para: 1 Term: 1 : 0 Abortions: Spontaneous or Elective: 1 Number of Living Children: 1 - Gestational Age Gestational Age by ANGELINA (wks/days): 37 Weeks and 4 Days Review of Systems - Review of Systems Constitutional: No problems Breast: No problems ENT: No problems Cardiovascular: No problems Respiratory: No problems Gastrointestinal: No problems Genitourinary: No problems Musculoskeletal: No problems Neurological: No problems Skin: No problems Vital Signs - Temperature Temperature: 97.1 F Temperature Source: Oral - Pulse Right Pulse Rate: 91 Pulse Assessment Method: Automatic Cuff - Respirations Oxygen Delivery Method: Room Air - Blood Pressure Right Arm Blood Pressure: 128/63 Blood Pressure Mean: 84 Blood Pressure Source: Automatic Cuff Medical Screen Scoring - Cervical Exam Dilation (cm): 1.5 Effacement (%): 60 Station: -3 Membranes: Intact - Uterine Contractions Frequency From (mins): 3 Frequency To (mins): 1 Duration From (seconds): 50 Duration To (seconds): 100 - Assessment - Baby A Baseline FHR: 145 Heart Rate - NICHD Category: Category I (Normal) NST: Reactive Physician Notification - Physician Notified Physician Notified Date: 05/13/23 Physician Notified Time: 18:43 Physician: Ángela Saleh - Notification Comment Comment: If no cervical change pt okay to d/c Maternal Triage Index - Maternal Triage Index Presenting for scheduled procedure w/no complaint: No - Stat/Priority 1 Stat Priority 1: No - Urgent/Priority 2 Urgent Priority 2: No - Prompt/Priority 3 Prompt Priority 3: Yes Criteria Met for Priority 3: cramping/ctx r/o labor Disposition - Disposition OB Disposition: Discharge to home Discharge Date: 05/13/23 Discharge Time: 19:17 I agree with the RN Medical Screening Exam: Yes Case reviewed; plan agreed upon as documented in EMR&OBIX.: Yes Diagnosis: FALSE LABOR AT OR AFTER 37 COMPLETED WEEKS OF GESTATION
== END ==
LOC: FBPOP 17:49
PROVIDERS: ATTEND Obstetrics & Gynecology
DX: O47.1 False labor at or after 37 completed weeks of gestation (principal); Z3A.37 37 weeks gestation of pregnancy; Z88.2 Allergy status to sulfonamides; Z91.048 Other nonmedicinal substance allergy status
CPT/HCPCS: 59025; G0463; 99213

== ENCOUNTER 2023-05-22 10:03 | Outpatient (CLI) | payer OTHER ==
--- NOTE | 2023-05-22 12:37 | US ---
EXAMINATION TYPE: US OB limited DATE OF EXAM: 05/22/2023 COMPARISON: Early OB CLINICAL INDICATION: Female, 33 years old with history of SHAQ r/t FHT; Position and SHAQ per Physician EXAM PERFORMED: Transabdominal (TA) GESTATIONAL AGE / DATING Physician Established: (38 weeks/4 days) EDC: 06/01/2023 No growth performed on today?s study per ordering physician SURVEY SHAQ: 10.6 cm Normal Ultrasound evidence of premature rupture of membranes? No PRESENTATION: Vertex HEART RATE: 156 bpm RHYTHM: Normal Results given to L&D at time of exam Note is made the exam is a limited exam for SHAQ measurement IMPRESSION: 1. The SHAQ measures 10.6 cm
[2023-05-22 13:25] VITALS: BP 131/75; PULSE 97; RESP 16; TEMP 98.5
== END 2023-05-22 13:00 | disposition home or self-care (01) ==
LOC: FBPOP 10:03
PROVIDERS: ATTEND Obstetrics & Gynecology
DX: Z53.9 Procedure and treatment not carried out, unspecified reason (principal); Z36.89 Encounter for other specified antenatal screening
CPT/HCPCS: 59025; 76815; G0463; 99213

== ENCOUNTER 2023-05-22 15:35 | Inpatient (IN) | payer OTHER ==
[2023-05-22] MEDS ORDERED: TERBUTALINE 1 MG/ML VIAL SQ PRN (16:06)
[2023-05-22] MEDS ORDERED: miSOPROStoL 200 MCG TAB PO PRN (16:06)
[2023-05-22] MEDS ORDERED: CARBOPROST TROMETHAMINE 250 MCG/ML 1 ML AMP IM PRN (16:06)
[2023-05-22] MEDS ORDERED: LIDOCAINE 0.5% (PF) 5 MG/ML (50 ML SDV) SQ PRN (16:06)
[2023-05-22] MEDS ORDERED: METHYLERGONOVINE 0.2 MG/ML 1 ML AMP IM PRN (16:06)
[2023-05-22] MEDS ORDERED: TRANEXAMIC 1,000 MG/100ML-NACL 1,000 MG in EMPTY BAG 1 BAG IV PRN (16:06)
[2023-05-22] MEDS ORDERED: OXYTOCIN 10 UNIT/ML 1 ML VIAL IM PRN (16:06)
--- NOTE | 2023-05-22 16:15 | P.HPOB ---
History of Present Illness H&P Date: 05/22/23 Chief Complaint: Labor 23-year-old presents at 38 weeks and 5 days in active labor. Her cervix is 5 cm dilated, 80% effaced, -1 station. She is julia every 3 minutes. heart tones are category 1 with a baseline of 130. At 35 weeks she had a growth ultrasound that showed the baby to be 6 lbs. 14 oz. in the 86th percentile for weight. Review of Systems All systems: negative Constitutional: Denies chills, Denies fever Eyes: denies blurred vision, denies pain Ears, nose, mouth and throat: Denies headache, Denies sore throat Cardiovascular: Denies chest pain, Denies shortness of breath Respiratory: Denies cough Gastrointestinal: Denies abdominal pain, Denies diarrhea, Denies nausea, Denies vomiting Genitourinary: Denies dysuria, Denies hematuria Musculoskeletal: Denies myalgias Integumentary: Denies pruritus, Denies rash Neurological: Denies numbness, Denies weakness Psychiatric: Denies anxiety, Denies depression Endocrine: Denies fatigue, Denies weight change Past Medical History Past Medical History: No Reported History Additional Past Medical History / Comment(s): Obstetric history: She has had a few miscarriages and 1 vaginal delivery of a 9 lbs. 3 oz. baby. Her blood type is A+ and she is GBS negative History of Any Multi-Drug Resistant Organisms: MRSA Date of last positivie culture/infection: 05/07/2008 MDRO Source:: Inner left thigh Past Surgical History: No Surgical Hx Reported Additional Past Surgical History / Comment(s): [place] teeth extracted., D&C Past Anesthesia/Blood Transfusion Reactions: No Reported Reaction Smoking Status: Former smoker - Past Family History Mother Family Medical History: No Reported History Medications and Allergies Home Medications Medication Instructions Recorded Confirmed Type Pnv No.95/Ferrous Fum/Folic AC 1 each PO DAILY 03/22/21 05/22/23 History [ Multivitamin Tablet] Allergies Allergy/AdvReac Type Severity Reaction Status Date / Time sulfamethoxazole Allergy Abdominal Verified 05/22/23 16:05 [From Bactrim] Pain trimethoprim [From Bactrim] Allergy Abdominal Verified 05/22/23 16:05 Pain Exam Osteopathic Statement: *. No significant issues noted on an osteopathic structural exam other than those noted in the History and Physical/Consult. Intake and Output 05/22/23 05/22/23 05/22/23 06:59 14:59 22:59 Other: Weight 73.936 kg Heart: Regular rate and rhythm Lungs: Clear to auscultation bilaterally Abdomen: Soft, nontender Extremities: Negative Homans sign Assessment and Plan (1) Normal labor Current Visit: Yes Status: Acute Code(s): O80 - ENCOUNTER FOR FULL-TERM UNCOMPLICATED DELIVERY; Z37.9 - OUTCOME OF DELIVERY, UNSPECIFIED SNOMED Code(s): 77939658 (2) 38 weeks gestation of Current Visit: Yes Status: Acute Code(s): Z3A.38 - 38 WEEKS GESTATION OF SNOMED Code(s): 34516256 Plan: 1. Admit to family place 2. Anticipate normal vaginal delivery
[2023-05-22 16:21] LABS: Basophils # (A) 0.1 k/uL (0-0.2); Basophils % (A) 0 %; Eosinophils # (A) 0.1 k/uL (0-0.7); Eosinophils % (A) 0 %; HGB 12.9 gm/dL (11.4-16.0); Hypochromasia Slight; Lymphocytes # (A) 1.7 k/uL (1.0-4.8); Lymphocytes % (A) 9 %; MCH 30.2 pg (25.0-35.0); MCHC 33.1 g/dL (31.0-37.0); Mean Platelet Volume 12.8; Monocytes # (A) 0.7 k/uL (0-1.0); Monocytes % (A) 4 %; Neutrophils # (A) 15.1 k/uL (1.3-7.7); Neutrophils % (A) 84 %; Platelet Count 204 k/uL (150-450); RBC 4.29 m/uL (3.80-5.40); RDW 12.6 % (11.5-15.5); WBC 17.9 k/uL (3.8-10.6)
[2023-05-22] MEDS: LACTATED RINGERS 1,000 ML IV SCH (16:56)
--- NOTE | 2023-05-22 18:22 | P.PROBDLV ---
Vaginal Delivery Note - . Vaginal Delivery Note: 23-year-old presents at 38 weeks and 5 days in active labor. Her cervix is 5 cm dilated, 80% effaced, -1 station. She is julia every 3 minutes. heart tones are category 1 with a baseline of 130. At 35 weeks she had a growth ultrasound that showed the baby to be 6 lbs. 14 oz. in the 86th percentile for weight. Amniotomy performed at 1600 and clear fluid noted. Patient progressed to complete around 1750. She pushed, delivered a viable male over intact perineum at 1807. Head delivered OA, nuchal cord 1 easily reduced, anterior shoulder delivered gentle downward guidance followed by posterior shoulder and rest of body. Nose and mouth bulb suctioned, cord clamped and cut, placed mother's abdomen. Apgars 8, 9, weight 7 pounds 5.3 ounces. Placenta delivered spontaneously, intact with three-vessel cord at 1811. Vagina, cervix, perineum inspected. First-degree midline laceration was repaired with 3-0 Vicryl. Patient then had another gush of lochia that was pretty significant and her uterus did firm up quickly but still was trickling some blood. I did give her a dose of Methergine along with Pitocin in her IV since she does have a history of hemorrhage. Mother and baby in stable condition. Estimated blood loss 250 mL.
[2023-05-22] MEDS ORDERED: diphenhydrAMINE 25 MG CAP PO PRN (18:39)
[2023-05-22] MEDS ORDERED: LANOLIN CREAM 5 GM TUBE TOPICAL PRN (18:39)
[2023-05-22] MEDS ORDERED: BENZOCAINE/MENTHOL SPRAY 1 GM/SPRAY AEROSOL TOPICAL PRN (18:39)
[2023-05-22] MEDS ORDERED: HYDROCORTISONE 2.5% RECTAL CREAM 30 GM TUBE RECTAL PRN (18:39)
[2023-05-22] MEDS ORDERED: ACETAMINOPHEN TAB 325 MG TAB PO PRN (18:39)
[2023-05-22] MEDS ORDERED: diphenhydrAMINE 50 MG/ML 1 ML VIAL IVP PRN ×2 (18:39)
[2023-05-22] MEDS ORDERED: ZOLPIDEM 5 MG TAB PO PRN (18:39)
[2023-05-22] MEDS ORDERED: SIMETHICONE 80 MG CHEWABLE PO PRN (18:39)
[2023-05-22] MEDS ORDERED: diphenhydrAMINE 50 MG CAP PO PRN (18:39)
[2023-05-22] MEDS ORDERED: OXYTOCIN 30 UNITS/500 ML NS 30 UNIT in SALINE 1 500ML.BAG IV SCH (18:45)
[2023-05-22] MEDS: IBUPROFEN 600 MG TAB PO PRN (19:04)
[2023-05-22] MEDS: SENNOSIDES-DOCUSATE SODIUM 1 EACH TAB PO SCH (21:05)
[2023-05-23] MEDS: LACTATED RINGERS 1,000 ML IV SCH (02:48)
[2023-05-23 07:33] LABS: Basophils # (A) 0.1 k/uL (0-0.2); Basophils % (A) 0 %; Eosinophils # (A) 0.1 k/uL (0-0.7); Eosinophils % (A) 1 %; HCT 32.5 % (34.0-46.0); HGB 10.9 gm/dL (11.4-16.0); Lymphocytes # (A) 2.4 k/uL (1.0-4.8); Lymphocytes % (A) 15 %; MCH 30.3 pg (25.0-35.0); MCHC 33.5 g/dL (31.0-37.0); MCV 90.3 fL (80.0-100.0); Mean Platelet Volume 12.7; Monocytes # (A) 1.1 k/uL (0-1.0); Monocytes % (A) 7 %; Neutrophils # (A) 12.1 k/uL (1.3-7.7); Neutrophils % (A) 75 %; Platelet Count 199 k/uL (150-450); RDW 12.6 % (11.5-15.5); WBC 16.1 k/uL (3.8-10.6)
[2023-05-23] MEDS: SENNOSIDES-DOCUSATE SODIUM 1 EACH TAB PO SCH (08:20)
[2023-05-23] MEDS: IBUPROFEN 600 MG TAB PO PRN (08:21)
--- NOTE | 2023-05-23 09:31 | P.DS ---
Providers Date of admission: 05/22/23 16:19 Expected date of discharge: 05/23/23 Attending physician: Michelle Peguero Primary care physician: Stated None - Discharge Diagnosis(es) (1) Normal labor Current Visit: Yes Status: Resolved (2) 38 weeks gestation of Current Visit: Yes Status: Resolved (3) Normal vaginal delivery Current Visit: Yes Status: Acute Hospital Course: Pt presented in active labor. She underwent a normal vaginal delivery. PP course uncomplicated. Denies N/V, F/C, CP, SOB or calf pain. Plan - Discharge Summary New Discharge Prescriptions: New Ibuprofen [Motrin] 600 mg PO Q6HR PRN #30 tab PRN Reason: Mild Pain (Scale 1 To 3) No Action Pnv No.95/Ferrous Fum/Folic AC [ Multivitamin Tablet] 1 each PO DAILY Discharge Medication List Pnv No.95/Ferrous Fum/Folic AC [ Multivitamin Tablet] 1 each PO DAILY 03/22/21 [History] Ibuprofen [Motrin] 600 mg PO Q6HR PRN #30 tab 05/23/23 [Rx] Follow up Appointment(s)/Referral(s): Ángela Saleh DO [Doctor of Osteopathic Medicine] - 6 Weeks Discharge Disposition: HOME SELF-CARE
[2023-05-23 16:10] VITALS: BP 108/65; PULSE 92; RESP 15; TEMP 98.6
== END 2023-05-23 18:45 | disposition home or self-care (01) | DRG 560 ==
LOC: FBPOP 15:35 → 4FBP 16:19
PROVIDERS: ADMIT Obstetrics & Gynecology; ATTEND Obstetrics & Gynecology
PROC: 10E0XZZ Delivery of Products of Conception, External Approach (ICD-10-PCS; principal; 2023-05-22)
PROC: 0HQ9XZZ Repair Perineum Skin, External Approach (ICD-10-PCS; 2023-05-22)
PROC: 10907ZC Drainage of Amniotic Fluid, Therapeutic from Products of Conception, Via Natural or Artificial Opening (ICD-10-PCS; 2023-05-22)
DX: O69.81X0 Labor and delivery complicated by cord around neck, without compression, not applicable or unspecified (principal); O70.0 First degree perineal laceration during delivery; Z37.0 Single live birth; Z3A.38 38 weeks gestation of pregnancy; Z87.891 Personal history of nicotine dependence; Z86.14 Personal history of Methicillin resistant Staphylococcus aureus infection; Z88.2 Allergy status to sulfonamides; Z88.1 Allergy status to other antibiotic agents
CPT/HCPCS: 85025; 86850; 86900; 86901; 99213